=== PATIENT | male | born 1980 | race Caucasian/White ===

== ENCOUNTER 2022-02-16 17:06 | Emergency (ER) | payer BC ==
[2022-02-16] MEDS: Lidocaine 2% with EPINEPHrine 1:200,000 10 ML SDV INFILT ONE (17:44)
[2022-02-16] MEDS: Bacitracin/Neomycin/Polymyxin B Oint 0.9 GM U/D Packet TOP ONE (17:44)
== END 2022-02-16 18:00 | disposition home or self-care (01) ==
LOC: KA.ED 17:06
DX: S61.211A Laceration without foreign body of left index finger without damage to nail, initial encounter (principal); W26.8XXA Contact with other sharp object(s), not elsewhere classified, initial encounter
CPT/HCPCS: 12002; 73140-F1; 99283; 99283-25